=== PATIENT | male | born 1945 | race Caucasian/White ===

== ENCOUNTER 2016-11-18 10:56 | Inpatient (IN) ==
[2016-11-18] MEDS ORDERED: ZOFRAN IV PRN (12:20)
[2016-11-18] MEDS ORDERED: TYLENOL PO PRN (12:20)
[2016-11-18] MEDS ORDERED: NORCO-7.5 PO PRN (12:26)
[2016-11-18] MEDS ORDERED: ANTIVERT PO PRN (12:26)
[2016-11-18 12:43] LABS: MANUAL DIFF NEEDED? NO
[2016-11-18 12:53] LABS: BASO% 0.6 % (0.0-0.8); EOS% 4.4 % (0.0-10.0); HEMATOCRIT 35.4 % (42.0-52.0); IMM GRAN# 0.02 X1000 (0.0-0.04); IMM GRAN% 0.3 % (0.0-0.5); LYMPH# 1.88 X1000 (1.2-3.4); LYMPH% 27.8 % (20.5-51.1); MCH 32.2 PG (27-31); MCHC 33.9 g/dL (33-37); MCV 94.9 FL (81-99); MONO# 0.39 X1000 (0.11-0.59); MONO% 5.8 % (1.7-9.3); MPV 10.1 FL (7.4-10.4); NEUT% 61.1 % (42.2-75.2); PLT 108 X1000 (130-400); RBC 3.73 XMIL (4.7-6.1)
[2016-11-18 13:01] LABS: INR 0.97; PROTIME 10.2 Seconds (9.2-11.7); PTT 26.6 Seconds (22.0-36.0)
[2016-11-18 13:12] LABS: ALBUMIN 3.9 g/dL (3.5-5.0); CALCIUM 8.6 mg/dL (8.8-10.2); POTASSIUM 4.5 mmol/L (3.5-5.1); TOTAL BILIRUBIN 0.49 mg/dL (0.20-1.00); TOTAL PROTEIN 7.6 g/dL (6.3-8.3)
--- NOTE | 2016-11-18 14:11 | Diag Imaging Result Doc PS360 ---
MRI BRAIN W W/O CONTRAST - 11/18/2016 INDICATION: Stroke COMPARISON: 02/19/2014 FINDINGS: There is no area of restricted diffusion. No intracranial mass or hemorrhage. No area of abnormal signal. No abnormal contrast enhancement. Midline structures including optic chiasm and pituitary are normal. IMPRESSION: Negative exam. Electronically signed by Fabian Juares 11/18/2016 2:09 PM
--- NOTE | 2016-11-18 15:04 | HISTORY AND PHYSICAL ---
CHIEF COMPLAINT: Stumbling, headache, weakness of left arm and leg, and confusion. HISTORY OF PRESENT ILLNESS: The patient is a 71-year-old white male followed in my medical practice who is brought in by his daughter to the office. The patient woke up yesterday morning with confusion. Daughter said he was talking out of his head at times. He also noted some numbness and weakness, mild, in his left hand and arm and leg. He had some stumbling with this. He has had some right preauricular headache and swelling there. He had been in for evaluation on 11/15/2016 in the office and I noted that he had a couple blister-like lesions on his right mid pinna area and this was HSV related and started him on Valtrex at that time. I am unclear if he is taking this medication. The patient thought he might have a little swelling in the left pinna area, but I do not see any swelling or redness there. Medications taken down by the nurse as his current medications are 1. Glipizide XL 10 mg p.o. b.i.d. 2. Percocet 7.5 p.o. t.i.d. 3. Phenergan p.r.n. 4. Cipro 500 mg b.i.d. 5. Tylenol p.r.n. 6. Occasional [place]. 7. Antivert 25 mg p.o. t.i.d. p.r.n. dizziness. These are the ones I have down; not confirmed by the nurse, but he is supposed to be on Welchol 3 p.o. b.i.d., Lantus insulin, 68 units subcutaneous q.a.m.. 8. Aspirin 325 mg p.o. daily. 9. Losartan 100 mg p.o. daily. 10. Zoloft 100 mg p.o. daily. 11. Metoprolol 25 mg p.o. b.i.d. 12. Neurontin 300 mg 2 p.o. b.i.d. 13. Flomax 0.4 mg p.o. daily. 14. Proscar 5 mg p.o. daily. 15. Protonix 40 mg p.o. daily. 16. Allopurinol 100 mg p.o. daily. ALLERGIES: NKDA. PAST MEDICAL HISTORY: 1. Migraine headaches. 2. History of diverticulosis. 3. BPH followed by Dr. Farley. 4. Type 2 DM, now insulin requiring. Initially diagnosed 2005. 5. Diabetic neuropathy. 6. Mild chronic renal insufficiency. 7. Hypercholesterolemia. 8. History of kidney stones. PAST SURGICAL HISTORY: 1. Lumbar laminectomy. 2. Hemorrhoidectomy. 3. Laparoscopic cholecystectomy in 06/2009. 4. Right knee arthroscopy in 1990. 5. Left shoulder surgery. 6. Right ureteral stent in 2015. IMMUNIZATIONS: Pneumovax 23 given in 2007, Prevnar 04/15/2015. Last influenza vaccination 04/2016. FAMILY HISTORY: Notable for father with prostate cancer. No hypertension, strokes, MIs, or diabetes in the family. SOCIAL HISTORY: The patient lives in [place]. He is . He has 3 children. 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 Quit smoking in 1980 but has about a 24-[id number]-tpew history of smoking. No alcohol usage. REVIEW OF SYSTEMS: Notables are evaluation per Dr. Sainz in 02/2016 for his heart with nuclear stress testing and negative echo. He sees Dr. Moon for GI care. Last colonoscopy in 03/2014. He see Dr. Qing Mcguire for eye care. OBJECTIVE: Vital signs: Weight 236. Blood pressure 120/60, pulse 80, temperature 96.0 degrees. General: [id number] obesity. Skin: No rashes except there is redness and a couple of scabbed lesions on his right mid pinna area with mild swelling at the area. No significant worsening from evaluation on 11/15. No significant swelling at the left pinna identified. No blister lesions there. HEENT: MARLIN, GANESH. Sclerae: Minimal injection. Mild horizontal nystagmus. TMs clear. OP without redness. Tongue in the midline. Neck: No LA, TMG, JVD, or bruits. CV: RRR without distinct murmur. Lungs: CTA. Abdomen: Protuberant. No mass or organomegaly. Nontender. Genitourinary/Rectal: Deferred. Extremities: No calf tenderness, cords, or edema. Neurologic: Cranial nerves 2-12 are intact without focal deficits. DTRs are equal upper and lower extremities. There is mild stumbling and ataxia noted on exam. I cannot rule out minimal weakness at the left arm compared to the right and, again, he seems to stumble a bit with his left leg. The patient is alert and oriented x4. There may be very minimal confusion but nothing severe. Works or intelligible. He answers questions. ASSESSMENT: 1. Confusion/mental status change. 2. Possible left arm and leg weakness. Rule out cerebrovascular accident. 3. Lesions right pinna. 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 Rule out zoster. Improving slightly with Valtrex treatment or with time. 4. Insulin-dependent diabetes mellitus. 5. Hypercholesterolemia. 6. Chronic renal insufficiency. 7. Diabetic neuropathy. 8. Diverticulosis. 9. History of migraine headaches. 10. Benign prostatic hypertrophy followed by Dr. Farley , urology. 11. History of kidney stones followed by Dr. Farley. 12. Osteoarthritis. PLAN: At this time, we will admit the patient to telemetry bed, monitor neurological checks q. 1 hour. Continue his aspirin and check MRI of brain. We will check carotid Dopplers and echocardiogram. Continue his home medications except for his insulin. For now, we will leave him on a diabetic diet with serial Accu-Cheks and SSI to cover his blood sugars. Continue Valtrex for the lesions right ear area. We will need to rule out herpetic encephalopathy although that is less likely. We will check labs to include CBC, CMP, lipid profile. cc: Jasbir Rosa MD
[2016-11-18 16:13] LABS: UR AMPHETAMINES QUAL NONE DETECTED (NONE DETECT); UR BARBITUATES QUAL NONE DETECTED (NONE DETECT); UR BENZODIAZEPIN QUAL NONE DETECTED (NONE DETECT); UR CANNABINOIDS QUAL NONE DETECTED (NONE DETECT); UR COCAINE QUAL NONE DETECTED (NONE DETECT); UR METHADONE QUAL NONE DETECTED (NONE DETECT); UR OPIATES QUAL NONE DETECTED (NONE DETECT); UR OXYCODONE QUAL NONE DETECTED (NONE DETECT); UR PCP QUAL NONE DETECTED (NONE DETECT)
[2016-11-18] MEDS ORDERED: ASPIRIN EC PO ONE (16:26)
[2016-11-18] MEDS: HUMULIN R SUBQ SCH ×2 (17:51→21:32)
[2016-11-18] MEDS: NS 1,000 ML IV SCH (17:57)
[2016-11-18] MEDS ORDERED: FLOMAX PO SCH (21:00)
[2016-11-18] MEDS: LOPRESSOR PO SCH (21:32)
[2016-11-18] MEDS: VALTREX PO SCH (21:32)
[2016-11-19 05:11] LABS: HEMATOCRIT 33.9 % (42.0-52.0); HEMOGLOBIN 11.4 g/dL (14.0-18.0); MCH 32.5 PG (27-31); MCHC 33.6 g/dL (33-37); MCV 96.6 FL (81-99); MPV 9.7 FL (7.4-10.4); RBC 3.51 XMIL (4.7-6.1)
[2016-11-19] MEDS: HUMULIN R SUBQ SCH ×3 (06:12→16:12)
[2016-11-19] MEDS: NS 1,000 ML IV SCH (06:21)
[2016-11-19] MEDS: VALTREX PO SCH (08:59)
[2016-11-19] MEDS: LOPRESSOR PO SCH (08:59)
[2016-11-19] MEDS ORDERED: ASPIRIN PO SCH ×2 (09:00)
[2016-11-19] MEDS ORDERED: COZAAR PO SCH (09:00)
[2016-11-19] MEDS ORDERED: ZYLOPRIM PO SCH (09:00)
[2016-11-19] MEDS ORDERED: NEURONTIN PO SCH (09:00)
[2016-11-19] MEDS ORDERED: ZOLOFT PO SCH (09:00)
--- NOTE | 2016-11-19 17:49 | ECHO REPORT ---
ORDER DATE: 11/18/2016 ECHOCARDIOGRAM: MEASUREMENTS: Left atrium 4.1, aortic root 3.7. SUMMARY: 1. Fair quality study. 2. Mild aortic valve sclerosis with normal aortic valve opening evident. Peak instantaneous gradient across the aortic valve was less than 10 mmHg. Mild mitral annular calcification is demonstrated. There is also a small focal area chordal calcification just beneath the anterior mitral leaflet tip. Mitral valve opening appears adequate. There is trace mitral regurgitation. Tricuspid valve without structural abnormality while pulmonic valve not well demonstrated. There is mild tricuspid regurgitation. Estimated systolic PA pressure by Doppler is 30-35 mmHg. The aortic root is normal size. 3. Normal left ventricle dimensions suggested on 2-D images. Estimated left ventricular ejection fraction appears to be at least 55%. No regional wall motion abnormalities can be appreciated. Doppler suggests grade 1 left ventricular diastolic dysfunction. Left atrium is mildly enlarged. Right atrium and right ventricle are normal size with normal right ventricular systolic function. 4. No pericardial effusion. 5. Appearance of inferior vena cava suggests normal central venous pressure. CONCLUSIONS: 1. Mild aortic valve sclerosis without stenosis. 2. Mild mitral annular calcification with small focal calcification involving or just beneath mitral leaflet tip with trace mitral regurgitation. 3. Mild tricuspid regurgitation with estimated systolic PA pressure of 30-35 mmHg. 4. Normal left ventricular ejection fraction without wall motion at evident. 5. Grade 1 left ventricular diastolic dysfunction suggested. 6. Mild left atrial enlargement. cc: MD Jasbir Mittal MD
[2016-11-19 19:38] VITALS: BP 162/76
--- NOTE | 2016-11-20 17:06 | DISCHARGE SUMMARY ---
ADMISSION DATE: 11/18/2016 DISCHARGE DATE: 11/19/2016 DISCHARGE DIAGNOSES: 1. Mental status change, brief. Rule out transient ischemic attack, rule out viral syndrome. 2. Possible left arm and leg weakness, brief. Again, rule out transient ischemic attack, rule out related to recent viral syndrome. 3. 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 4. Insulin-dependent diabetes mellitus. 5. Hypercholesterolemia. 6. Chronic renal insufficiency. 7. Diabetic neuropathy. 8. Diverticulosis. 9. History of migraine headaches. 10. Benign prostatic hypertrophy followed by Dr. Farley, Urology. 11. History of kidney stones. 12. Osteoarthritis. 13. Thrombocytopenia, mild, likely possibly related to viral illness. Rule out chronic condition. Will monitor this outpatient. PROCEDURES: 1. MRI of the brain done 11/18/2016 with and without contrast. Negative. 2. Echocardiogram done 11/18/2016 revealed mild aortic valve sclerosis without stenosis, mild mitral annular calcification with small focus of calcification involving her just beneath the mitral leaflet tip with trace mitral regurgitation. Mild tricuspid regurgitation. Normal left ventricular ejection fraction at 55%. No wall motion abnormalities. Grade 1 left ventricular diastolic dysfunction suggested mild left atrial enlargement. 3. Bilateral carotid Doppler studies revealing no significant stenotic areas in the carotids but deep vessels noted. HISTORY OF PRESENT ILLNESS: The patient is a 71-year-old white male followed in my medical practice who came in brought in by his daughter to the office. The patient apparently had awakened on 11/17/2016 in the morning and had some confusion, and his daughter came to visit him and he was somewhat talking out of his head at times. He complained of some numbness and weakness, mild, in his left arm and hand and leg, and he had some possible difficulties with stumbling. He had right preauricular headache and had some swelling there, and had been evaluated in the office on 11/15 and I had noted a couple of blisters on his right pinna area consistent with HSV at that time, and started him on Valtrex outpatient orally for this on 11/15, and he had been taking it. The lesions have dried up and have become less swollen since the treatment started. The patient was evaluated in the office and no significant abnormality was found. On exam he might have had minimal subjective weakness left arm and leg but he was ambulating without difficulty and had no confusion in the office at all. Afebrile throughout the hospitalization and we monitored him neurologically and he had no difficulties, did not seem weak in his arm or leg. The patient underwent some physical therapy and did well in that regard. Testing was done as above and was satisfactory, and labs showed a white count of 6.7, hemoglobin of 12, platelets 108 and 104 respectively. PT was 10.2, INR 0.97, PTT 26.6. CMP showed normal liver function tests. BUN and creatinine were at baseline at 28 and 2.6, potassium 4.5, sodium 133. Urine drug screen negative. The patient was followed during the hospitalization and he has had chronic horizontal nystagmus which has not changed during the evaluation and hospitalization. He does have some diabetic neuropathy and maybe that affects his gait slightly but overall he ambulated well, saw no significant deficits in his arms or legs. He was able to converse and he had no difficulties with thought processes during the hospital stay. It was felt by 11/19 that he could be discharged home. He will resume his home medications and resume the Valtrex at 500 mg p.o. b.i.d. outpatient, and he will follow up in my office in 1 week. At this time I have made the decision to continue the Ecotrin at 325 mg daily, if he has further difficulties may need to add Plavix at 75 mg daily, but at this point, I believe it is best to continue his home medications of aspirin and the like. Other labs that were pertinent show lipid profile with triglycerides 208, total cholesterol 150, LDL 103, HDL 27, VLDL 42. Will not add additional medication for this at this time. Consideration given later if required. cc: Jasbir Rosa MD
--- NOTE | 2016-11-22 15:37 | Carotid Study ---
DATE: 11/18/2016 PROCEDURE: Carotid duplex imaging. REFERRING PHYSICIAN: Dr. Rosa INTERPRETING PHYSICIAN: Dr. Johns TECH: Iam INDICATIONS: Left-sided weakness and stroke. OBSERVED DATA RIGHT LEFT Brachial Blood Pressure Carotid Pulse Bruits: Carotid/Sub DIAGRAM OF ULTRASOUND IMAGING R L RIGHT INT EXT INT EXT LEFT Hebert (cm/s) Hebert (cm/s) Subclavian 73/0 Subclavian 183/0 CCA Proximal 77/10 CCA Proximal 64/2 CCA Distal 68/8 CCA Distal 66/12 Bulb 62/8 Bulb 28/0 ICA Proximal 63/14 ICA Proximal 49/12 ICA Mid 59/15 ICA Mid 60/17 ICA Distal 44/14 ICA Distal 69/21 ECA 62/0 ECA 105/11 Vertebral 49/11 Vertebral 55/13 ICA/CCA Ratio 0.8 ICA/CCA Ratio 1.1 % Stenosis 0 to 39 % Stenosis 0 to 39 FINDINGS: There is mild atherosclerotic disease throughout both carotid systems. There are no ulcerative plaques. There is antegrade vertebral flow bilaterally. PHYSICIAN INTERPRETATION: Unremarkable carotid imaging study with mild plaque disease as described above. cc: MD Jasbir Reddy MD
== END 2016-11-19 20:10 | disposition home or self-care (01) ==
LOC: DIRADM 10:56 → 4N 11:24
PROVIDERS: ADMIT Family Medicine; ATTEND Family Medicine

== ENCOUNTER 2018-06-15 17:38 | Inpatient (IN) ==
[2018-06-15] MEDS ORDERED: ZOFRAN IV ONE (19:20)
[2018-06-15] MEDS ORDERED: SODIUM CHLORIDE 0.9% INJ ONE (19:20)
[2018-06-15] MEDS ORDERED: PROTONIX IV ONE (19:20)
[2018-06-15] MEDS ORDERED: NS 1,000 ML IV ONE ×2 (19:27→22:00)
[2018-06-15 20:00] LABS: BASO# 0.04 X1000 (0.0-0.2); BASO% 0.5 % (0.0-0.8); EOS# 0.16 X1000 (0.0-0.7); EOS% 2.2 % (0.0-10.0); HEMATOCRIT 38.9 % (42.0-52.0); HEMOGLOBIN 13.1 g/dL (14.0-18.0); IMM GRAN# 0.03 X1000 (0.0-0.04); IMM GRAN% 0.4 % (0.0-0.5); LYMPH# 1.75 X1000 (1.2-3.4); MCH 31.6 PG (27-31); MCHC 33.7 g/dL (33-37); MCV 93.7 FL (81-99); MONO# 0.36 X1000 (0.11-0.59); MONO% 4.9 % (1.7-9.3); MPV 10.2 FL (7.4-10.4); NEUT# 4.96 X1000 (1.4-6.5); PLT 143 X1000 (130-400); RBC 4.15 XMIL (4.7-6.1); RDW 13.2 % (11.5-14.5)
--- NOTE | 2018-06-15 20:04 | Diag Imaging Result Doc PS360 ---
EXAM: CT HEAD W/O CONTRAST 06/15/2018 HISTORY: intractable vomiting, headache TECHNIQUE: This exam was performed using automated exposure control, adjustment of mA or kV according to patient size, and/or use of iterative reconstruction technique. COMMENT: There is no evidence of mass effect, bleed, or abnormal extra-axial fluid collection. There are no previous studies available for comparison. There are calcifications in the vertebral and internal carotid arteries bilaterally. The visualized paranasal sinuses are clear. The calvarium is intact. IMPRESSION: No evidence of acute intracranial disease. Electronically signed by Rafael Badillo 06/15/2018 8:01 PM
[2018-06-15 20:08] LABS: INR 0.93; PROTIME 13.2 Seconds (11.0-16.0)
[2018-06-15 20:09] LABS: PTT 28.4 Seconds (22.3-41.8)
[2018-06-15 20:14] LABS: ALB/GLOB RATIO 1.2; ALBUMIN 3.7 g/dL (3.5-5.0); CALCIUM 9.3 mg/dL (8.8-10.2); CREATININE 1.7 mg/dL (0.7-1.2); TOTAL BILIRUBIN 0.9 mg/dL (0.20-1.00); TOTAL PROTEIN 6.7 g/dL (6.3-8.3)
[2018-06-15 20:21] LABS: ALLEN TEST YES; BE -3.1 mmoll (-3.0-3.0); BLOOD TYPE ARTERIAL; HCO3-(ACT) 22.4 mmoll (20.0-26.0); METHB 1.3 % (0.0-1.5); O2(CT) 17.2 mL/dL (15.0-23.0); O2HB 91.8 % (95.0-99.0); PCO2(98.6) 35 mmHg (35-45); PO2(98.6) 60 mmHg (60-100); SAMPLE BLOOD; SAO2 95.4 % (95.0-100.0); THB 13.3 g/dL (11.5-17.4); pH(98.6) 7.39 (7.35-7.45)
[2018-06-15 20:22] LABS: MODALITY ROOM AIR
[2018-06-15 20:35] LABS: URINE SOURCE CLEAN CATCH
[2018-06-15 20:38] LABS: BILIRUBIN URINE NEGATIVE (NEGATIVE); BLOOD URINE SMALL (NEGATIVE); COLOR YELLOW; GLUCOSE URINE 500 mg/dL (NEGATIVE); KETONE URINE 20 mg/dL (NEGATIVE); LEUKOCYTES URINE NEGATIVE (NEGATIVE); NITRITE URINE NEGATIVE (NEGATIVE); PROTEIN URINE 100 mg/dL (NEGATIVE); SP GRAVITY URINE 1.012; TURBIDITY URINE CLEAR (CLEAR); UROBILINOGEN URINE NORMAL (NORMAL)
[2018-06-15 20:39] LABS: UR EPITHELIAL CELLS <10 /HPF (<10); URINE BACTERIA NEGATIVE /HPF; URINE RBC <10 /HPF (<10); URINE WBC <10 /HPF (<10)
--- NOTE | 2018-06-15 21:49 | Diag Imaging Result Doc PS360 ---
EXAM: CT ABD/PELVIS W/IV CONT ONLY 06/15/2018 HISTORY: obstruction TECHNIQUE: This exam was performed using automated exposure control, adjustment of mA or kV according to patient size, and/or use of iterative reconstruction technique. COMMENT: The current examination is compared with 03/15/2016. There is some fibrosis in the lung bases. This was also present at the time the previous study. There is nodularity in the liver and splenomegaly with the spleen measuring over 16 cm in AP dimension. This has not changed significantly. The adrenal glands are not enlarged. The pancreas is stable in appearance. There has been cholecystectomy. The renal pelves are prominent. There is actually less dilatation of the collecting systems and on the previous study. There is no evidence of bowel obstruction. There is no evidence of abdominal aortic aneurysm or significant adenopathy. There is diverticulosis in the descending colon. Pelvis: The appendix is not distended. There is marked diverticulosis in the sigmoid colon. There is gas and stool in the rectum. There is no evidence of free fluid. No masses or significant adenopathy are present. The regional skeleton is stable in appearance. IMPRESSION: Diverticulosis coli. Mild constipation. Cirrhosis and splenomegaly. No evidence of acute disease. Electronically signed by Rafael Badillo 06/15/2018 9:46 PM
[2018-06-15] MEDS ORDERED: REGLAN IV ONE (22:59)
--- NOTE | 2018-06-15 22:59 | PROVIDER DOCUMENTATION ---
This chart was entered by Ting Zuniga Scribe, acting as scribe for Sarah Jewell MD. HPI-Abdominal Pain/GI Problem - General Chief Complaint: Vomiting Stated Complaint: N/V Time Seen by Provider: 06/15/18 19:03 Source: patient Allergies/Adverse Reactions: Patient Allergies Allergy/AdvReac Type Severity Reaction Status Date / Time No Known Allergies Allergy Verified 06/15/18 20:46 Home Medications: Home Medication List Medication Instructions Recorded Confirmed Last Taken Type Aspirin 325 mg PO DAILY 07/06/14 08/16/17 03/15/16 History Gabapentin 600 mg PO DAILY 07/06/14 08/16/17 03/14/16 History Glipizide [Glipizide Xl] 10 mg PO BID 07/06/14 08/16/17 03/15/16 History Losartan Potassium [Cozaar] 100 mg PO DAILY 07/06/14 03/16/16 03/15/16 History Meclizine HCl [Antivert] 25 mg PO TID PRN 07/06/14 03/16/16 Unknown History Metoprolol [Lopressor] 25 mg PO BID 07/06/14 08/16/17 03/15/16 History Sertraline HCl 100 mg PO DAILY 07/06/14 03/16/16 03/15/16 History Tamsulosin [Flomax] 0.4 mg PO QHS #5 capsule 03/13/16 08/16/17 03/14/16 Rx Allopurinol 100 mg PO DAILY #30 tablet 03/16/16 Unknown Rx Hydrocodone/Acetaminophen [[place] 1 each PO Q6H PRN PRN #13 tablet 03/16/16 Unknown Rx 7.5-325 Tablet] Aspirin 325 mg PO DAILY tablet 11/19/16 Unknown Rx Valacyclovir [Valtrex] 500 mg PO BID tablet 11/19/16 08/16/17 Unknown Rx Cephalexin [Keflex] 500 mg PO 4XDAY #28 cap 08/16/17 Unknown Rx Hydrocodone/APAP 5 mg/325 mg 1 ea PO Q6H PRN PRN #15 tab 08/16/17 Unknown Rx [[place]-5] - History of Present Illness-ABD Nature of Presenting Problems: Patient is a 73 year old male that c/o constant vomiting since last night after eating "chicken stew." He additionally c/o headache that has resolved since arrival to the ED. He denies abdominal pain, fever, chills, diarrhea, cp, sob, cough. Abdominal Pain Onset Location: reports: generalized abdomen Pain Radiation: reports: no radiation Quality of Pain: reports: aching Severity in ED: reports: mild Onset/Duration: reports: last night Timing: reports: still present, gone now (headache) Activities at Onset: reports: none Modifying Factors: improves with: nothing Associated Symptoms: denies: chest pain, cough, diarrhea, fever/chills, nausea, shortness of breath, vomiting Similar Symptoms Previously?: No Recently seen or treated by another doctor?: No Review of Systems - Adult - REVIEW OF SYSTEMS - ADULT Constitutional: denies: chills, fever Eyes: denies: discharge, dry eyes Ears, Nose, Mouth & Throat: denies: ear discharge, ear pain Cardiovascular: denies: chest pain, palpitations Respiratory: denies: cough, shortness of breath Gastrointestinal: reports: vomiting. denies: abdominal pain, diarrhea Genitourinary: denies: dysuria, hematuria Musculoskeletal: denies: back pain, muscle aches Neurological: denies: dizziness/vertigo, headache/migraines Past History - Adult - PAST MEDICAL HISTORY-ADULT Review of Records: reports: Old Records Reviewed, Nursing Assessment Review, Medications Reviewed Major Childhood Illnesses: reports: denies history Cardiovascular: reports: HTN Respiratory: reports: denies history Gastrointestinal: reports: denies history Obstetrical/Gynecological: reports: denies history Genitourinary: reports: kidney stones Musculoskeletal: reports: arthritis Neurological: reports: denies history Endocrine/Immune: reports: Diabetes Other Conditions: reports: denies history - PRIOR SURGERIES/PROCEDURES Surgical/Procedure History: reports: cholecystectomy, orthopedic (extremity) - IMMUNIZATION STATUS Childhood Immunizations: See Nurse Assessment Flu Vaccine: See Nurse Assessment - FAMILY HISTORY Family History: reviewed, not pertinent - SOCIAL HISTORY Smoking: non-smoker Alcohol Use Frequency: never Living Situation: family Physical Exam-General - PHYSICAL EXAM-ADULT Initial Vital Signs Reviewed: Yes - CONSTITUTIONAL General Appearance: alert, mild distress, other (vomit bag next to the patient with blood) - EYES Eyes: PERRL/EOMI, pink conjunctivae - NECK Neck: non-tender, supple - RESPIRATORY Respiratory: chest non-tender, lungs clear - CARDIOVASCULAR Cardiovascular: regular rate, rhythm, no murmur - GASTROINTESTINAL (ABDOMEN) Abdominal Exam: non tender, soft - MUSCULOSKELETAL Back Exam: normal inspection, no CVA tenderness, no vertebral tenderness Extremity: normal range of motion, non-tender, normal inspection, no pedal edema - SKIN Integumentary: normal color, warm/dry - NEUROLOGIC Neurologic: grossly normal, no motor/sensory deficits - PSYCHIATRIC Psych/Mental Status: normal mood/affect, normal thought content, normal thought process, oriented x 3 Progress - PLAN OF CARE/RESULTS Progress/Plan/Lab Results: Vital Signs - 8 hr 06/15/18 17:38 06/15/18 17:58 06/15/18 18:04 Pulse Rate 76 75 79 Respiratory Rate 22 27 H 29 H Blood Pressure 179/76 156/76 155/66 O2 Sat by Pulse Oximetry 98 99 99 Orders Category Date Time Status Cardiac Monitoring DIRECTED Care 06/15/18 19:21 Active Finger Stick Blood Sugar (ED) DIRECTED Care 06/15/18 19:21 Active Oxygen Therapy- ED Nursing DIRECTED Care 06/15/18 19:21 Active Saline Loc NOW Care 06/15/18 19:[address] HEAD W/O CONTRAST [CT] Stat Exams 06/15/18 19:22 Ordered ABG [RESP] Routine Lab 06/15/18 19:21 Ordered CBC WITH ELECTRONIC DIFF [HEME] Stat Lab 06/15/18 19:21 Uncollected CK PROFILE [SP CHEM] Stat Lab 06/15/18 19:21 Uncollected COMPREHENSIVE METABOLIC PANEL [CHEM] Stat Lab 06/15/18 19:21 Uncollected LACTATE, PLASMA [CHEM] Stat Lab 06/15/18 19:21 Uncollected OCCULT BLOOD NON-FECES Stat Lab 06/15/18 19:24 Uncollected PROTIME WITH INR [COAG] Stat Lab 06/15/18 19:21 Uncollected PTT [COAG] Stat Lab 06/15/18 19:21 Uncollected TROPONIN T Stat Lab 06/15/18 19:21 Uncollected URINALYSIS [URINALYSIS] Stat Lab 06/15/18 19:21 Uncollected 0.9% Sodium Chloride Inj [Ns] 1,000 ml Med 06/15/18 19:27 Active IV 999 mls/hr Ondansetron [Zofran] Med 06/15/18 19:20 Discontinued 4 mg IV NOW ONE Pantoprazole [Protonix] Med 06/15/18 19:20 Discontinued 40 mg IV NOW ONE Sodium Chloride 0.9% Med 06/15/18 19:20 Discontinued 10 ml INJ NOW ONE EKG [EKG] Stat Ther 06/15/18 19:21 Ordered [facility] [address] , [address], [place] [address] Department of Imaging Patient: AKIN MOELLER ADM Date: 06/15/18 MR#: [id number] : 1945 ADM Status: REG ER Age/Sex: 73/M Room/Bed: Loc: ED Ordering Physician: Sarah Jewell MD Family Physician: Jasbir Rosa MD Reason for Procedure: obstruction ___ Signed EXAM: CT ABD/PELVIS W/IV CONT ONLY 06/15/2018 HISTORY: obstruction TECHNIQUE: This exam was performed using automated exposure control, adjustment of mA or kV according to patient size, and/or use of iterative reconstruction technique. COMMENT: The current examination is compared with 03/15/2016. There is some fibrosis in the lung bases. This was also present at the time the previous study. There is nodularity in the liver and splenomegaly with the spleen measuring over 16 cm in AP dimension. This has not changed significantly. The adrenal glands are not enlarged. The pancreas is stable in appearance. There has been cholecystectomy. The renal pelves are prominent. There is actually less dilatation of the collecting systems and on the previous study. There is no evidence of bowel obstruction. There is no evidence of abdominal aortic aneurysm or significant adenopathy. There is diverticulosis in the descending colon. Pelvis: The appendix is not distended. There is marked diverticulosis in the sigmoid colon. There is gas and stool in the rectum. There is no evidence of free fluid. No masses or significant adenopathy are present. The regional skeleton is stable in appearance. IMPRESSION: Diverticulosis coli. Mild constipation. Cirrhosis and splenomegaly. No evidence of acute disease. Electronically signed by Rafael Badillo 06/15/2018 9:46 PM 06/15/182145 Interpreting Physician: Rafael Badillo MD Dictated Date/Time: 06/15/182138 cc: Sarah Jewell MD; Jasbir Rosa MD Result Diagrams: 06/15/18 18:01 06/15/18 18:01 - EKG 1 Time of EKG reading by physician:: 22:25 EKG Read and Signed by:: Bia Moses EKG Interpretation (*Must complete 3 of following elements*): Normal Rate: 86 Rhythm: Normal sinus rhythm [place]: normal QRS: normal [place] Interval: normal ST Wave: normal - CT/MRI 1 CT Study: Head Impression: Abnormal (COMMENT: There is no evidence of mass effect, bleed, or abnormal extra-axial fluid collection. There are no previous studies available for comparison. There are calcifications in the vertebral and internal carotid arteries bilaterally. The visualized paranasal sinuses are clear. The calvarium is intact. IMPRESSION: No evidence of acute intracranial disease.) 2 CT Study: Abdomen, Pelvis Impression: Abnormal (COMMENT: The current examination is compared with 2015. There is some fibrosis in the lung bases. This was also present at the time the previous study. There is nodularity in the liver and splenomegaly with the spleen measuring over 16 cm in AP dimension. This has not changed significantly. The adrenal glands are not enlarged. The pancreas is stable in appearance. There has been cholecystectomy. The renal pelves are prominent. There is actually less dilatation of the collecting systems and on the previous study. There is no evidence of bowel obstruction. There is no evidence of abdominal aortic aneurysm or significant adenopathy. There is diverticulosis in the descending colon. Pelvis: The appendix is not distended. There is marked diverticulosis in the sigmoid colon. There is gas and stool in the rectum. There is no evidence of free fluid. No masses or significant adenopathy are present. The regional skeleton is stable in appearance.) - CONSULTS/PCP/HOSPITALIST Notification #1 *Consult/PCP/Hospitalist*: Dr. Chew Time Discussed: 23:02 (intractable n/v. weakness) Consult Disposition: Will see in ED Departure - Departure Date of Disposition Decision: 06/15/18 Time of Disposition Decision: 23:02 DIAGNOSIS: Nausea & vomiting Disposition: HOME 01 Certified Medical Emergency: Emergent Condition: Stable Additional Freetext Instructions: ED Follow Up Instructions: You have been treated by a care provider in the Emergency Department. These instructions are being provided to you so you can have an understanding of how to care for yourself upon discharge. Upon discharge from the Emergency Department, you are responsible for making arrangements for follow-up care by a physician of your choice. Take all prescribed medications as directed. Return to the Emergency Department immediately for any new or worsening symptoms. You may call the Physician Referral phone number at [phone] to obtain a list of Physicians who are taking new patients. Referrals and Follow-Ups: Jasbir Rosa MD [Primary Care Provider] - Call for Appoint. 1-2days - Critical Care Note This patient required my direct & personal management of CC.: No Attestation - Physician/ RADHA Attestation Patient care was provided by Advanced Practice Provider:: No The physician spent face to face time with patient:: Yes Advanced Practice Provider documentation review:: Supervising physician onsite and consulted in the evaluation and care of this patient. The physician did have a face to face encounter with the patient. This chart was documented by the indicated scribe, (Ting Zuniga Scribe) and accurately reflects the services I performed and decisions made by me, Sarah Jewell MD, as attested by the provider's signature.
[2018-06-16] MEDS: ZOFRAN IV PRN ×3 (00:45→15:59)
--- NOTE | 2018-06-16 03:22 | HISTORY AND PHYSICAL ---
PRIMARY CARE PHYSICIAN: Dr. Rosa. CHIEF COMPLAINT: Nausea and vomiting x1 day. HISTORY OF PRESENTING ILLNESS: A 73-year-old male with a history of diabetes mellitus type 2, chronic kidney disease, hypertension, and hyperlipidemia who presented to the emergency department with a 1-day history of intractable nausea and vomiting. The patient states that he apparently went to eat out last night at a restaurant, and had some chicken. After that, he started developing nausea and vomiting. The patient was evaluated in the emergency department. He complained of weakness, worsening nausea and vomiting despite antiemetics. Due to his presenting symptoms, it was thought that we will place him for observation for further evaluation and management. At the time of my examination, he denied any headache, fever, chills, chest pain, shortness of breath, hemoptysis, melena, weight changes, and complained of nausea, vomiting, and feeling weak. PAST MEDICAL HISTORY: Includes diabetes mellitus type 2, chronic kidney disease, hypertension and hyperlipidemia. PAST SURGICAL HISTORY: Cholecystectomy, back surgery, right knee surgery, and cataract surgery. ALLERGIES: No known drug allergies. CURRENT MEDICATIONS: As listed in the medication reconciliation sheet. SOCIAL HISTORY: He is a former smoker. No history of alcohol or illicit drug use. FAMILY HISTORY: No history of coronary artery disease. REVIEW OF SYSTEMS: Fourteen point review of systems is as in HPI. Other systems negative. PHYSICAL EXAMINATION: GENERAL: Cooperative, friendly male. He is resting more comfortably now. VITAL SIGNS: Pulse 76, respirations 22, and blood pressure 179/76. HEENT: Atraumatic, normocephalic. Extraocular movements intact. PERRLA. NECK: Supple. CHEST: Clear to auscultation. CARDIOVASCULAR: Regular rate and rhythm. ABDOMEN: Soft. Positive bowel sounds. EXTREMITIES: No edema. NEUROLOGIC: He is awake, alert, and oriented x3. : No bladder distention. SKIN: Warm. LABORATORIES AND STUDIES: WBC 7.2. Hemoglobin 13.1, hematocrit 38.9, and platelets 143,000. Sodium 141, potassium 5, chloride 104, CO2 19, BUN 12, creatinine 1.[address] and pelvis shows mild constipation with no acute disease. ASSESSMENT: A 73-year-old male with a history of diabetes mellitus type 2, chronic kidney disease, hypertension, and hyperlipidemia who presented to the emergency department with a 1-day history of nausea and vomiting after eating dinner last night. Patient was evaluated in the emergency department. Due to his persistent nausea and vomiting despite antiemetics, we will place him for observation for further evaluation and management. 1. Intractable nausea and vomiting. 2. Diabetes mellitus type 2. 3. Chronic kidney disease. 4. Hypertension. PLAN: 1. We will admit patient to medical floor with telemetry. 2. Continue with supportive treatment with IV fluids, and antiemetics as needed. 3. We will put patient on glycemic protocol with sliding scale insulin regimen. 4. Monitor his renal function. 5. Resume his antihypertensive agents and other medications. 6. Place patient on DVT prophylaxis with SCD's. 7. We will continue to follow and reassess. Make further recommendation based on patient's clinical course. cc: Mamadou Chew MD
[2018-06-16] MEDS: NS 1,000 ML IV SCH ×3 (04:30→15:17)
[2018-06-16 07:12] LABS: BASO# 0.02 X1000 (0.0-0.2); BASO% 0.3 % (0.0-0.8); EOS# 0.05 X1000 (0.0-0.7); EOS% 0.7 % (0.0-10.0); HEMATOCRIT 36.7 % (42.0-52.0); HEMOGLOBIN 12.2 g/dL (14.0-18.0); IMM GRAN# 0.02 X1000 (0.0-0.04); IMM GRAN% 0.3 % (0.0-0.5); LYMPH# 1.71 X1000 (1.2-3.4); LYMPH% 22.7 % (20.5-51.1); MCH 31.8 PG (27-31); MCHC 33.2 g/dL (33-37); MCV 95.6 FL (81-99); MONO# 0.39 X1000 (0.11-0.59); MONO% 5.2 % (1.7-9.3); MPV 9.7 FL (7.4-10.4); NEUT# 5.33 X1000 (1.4-6.5); NEUT% 70.8 % (42.2-75.2); PLT 119 X1000 (130-400); RBC 3.84 XMIL (4.7-6.1); WBC 7.52 X1000 (4.8-10.8)
[2018-06-16 07:29] LABS: CREATININE 1.9 mg/dL (0.7-1.2); POTASSIUM 5.2 mmol/L (3.5-5.1)
--- NOTE | 2018-06-16 07:48 | EKG Report ---
Test Performed on : 06/15/2018 10:10:28 PM Test Reason : n/v Blood Pressure : / mmHG Vent. Rate : 086 BPM Atrial Rate : 086 BPM P-R Int : 196 ms QRS Dur : 078 ms QT Int : 378 ms P-R-T Axes : 052 -07 026 degrees QTc Int : 452 ms Normal sinus rhythm. Normal ECG When compared with ECG of 18-JUN-2009 14:00, Questionable change in QRS axis ST no longer elevated in Inferior leads Unconfirmed Result
[2018-06-16] MEDS: HUMULIN R SUBQ SCH ×4 (08:00→22:10)
[2018-06-16] MEDS ORDERED: NS 1,000 ML IV SCH (15:45)
--- NOTE | 2018-06-16 18:33 | PROGRESS NOTE ---
DATE: 06/16/2018 SUBJECTIVE: The patient has been admitted last night. He has had protracted vomiting. Still some ongoing nausea, but improved. He has had no significant abdominal pain, no diarrhea. OBJECTIVE: Vital Signs: Afebrile. Pulse 86. Respirations 20. Blood pressure 157/66. Cardiovascular: RRR, without murmur. Lungs: CTA. Abdomen: Protuberant. Soft. Hypoactive bowel sounds. Minimal tenderness diffusely. No mass or organomegaly. No rebound or guarding. Extremities: No significant edema. Neurologic: Cranial nerves are intact. No focal deficit deficits. LABORATORY STUDIES: White count 7.5, hemoglobin 12.2, down from 13.1, that is with heavy hydration. Platelets 119,000. Platelets yesterday 143. PT 13.9, INR 0.93, PTT 28.4. ABG reviewed from admission: Sodium 140, potassium 5.2, chloride 108, CO2 21, BUN 12, creatinine 1.9, up from 1.7. Blood sugars in the mid 200s. Urinalysis: 500 glucose, 20 ketones. That was on admission. Gastroccult positive. CT head was negative, whereas abdominal CT and pelvic CT revealed diverticulosis, mild constipation, cirrhosis, with splenomegaly. ASSESSMENT: 1. Nausea and vomiting. 2. Mild abdominal pain. 3. Chronic renal insufficiency. 4. Type 2 diabetes mellitus. 5. Hypertension. 6. Osteoarthritis. 7. Hypercholesterolemia. 8. Diverticulosis. 9. Probable cirrhosis of the liver. 10. Constipation. 11. Diabetic neuropathy. PLAN: We will continue IV hydration, antiemetics, and Zofran. We will back off on the hydration slightly. Continue Protonix started IV yesterday. We are going to hold his blood pressure medicines right now, as his blood pressure has been somewhat labile, and had been down to 99/53 earlier this morning. Encouraged him in weight loss and alcohol abstinence. Will follow labs tomorrow morning. cc: Jasbir Rosa MD
[2018-06-16] MEDS: NORCO-5 PO PRN (22:00)
[2018-06-17] MEDS: ZOFRAN IV PRN ×4 (00:04→17:26)
[2018-06-17] MEDS: NORCO-5 PO PRN ×3 (04:48→15:50)
[2018-06-17] MEDS: HUMULIN R SUBQ SCH ×3 (06:58→18:00)
[2018-06-17 07:31] LABS: BASO# 0.02 X1000 (0.0-0.2); BASO% 0.3 % (0.0-0.8); EOS# 0.12 X1000 (0.0-0.7); EOS% 2.1 % (0.0-10.0); HEMATOCRIT 37.8 % (42.0-52.0); HEMOGLOBIN 12.6 g/dL (14.0-18.0); IMM GRAN# 0.03 X1000 (0.0-0.04); IMM GRAN% 0.5 % (0.0-0.5); LYMPH# 1.33 X1000 (1.2-3.4); MCH 32.1 PG (27-31); MCHC 33.3 g/dL (33-37); MCV 96.4 FL (81-99); MONO# 0.31 X1000 (0.11-0.59); MONO% 5.4 % (1.7-9.3); MPV 9.6 FL (7.4-10.4); NEUT# 3.97 X1000 (1.4-6.5); NEUT% 68.7 % (42.2-75.2); PLT 108 X1000 (130-400); RBC 3.92 XMIL (4.7-6.1); RDW 13.3 % (11.5-14.5); WBC 5.78 X1000 (4.8-10.8)
[2018-06-17 07:51] LABS: ALB/GLOB RATIO 1.2; ALBUMIN 3.6 g/dL (3.5-5.0); CALCIUM 8.7 mg/dL (8.8-10.2); CREATININE 1.8 mg/dL (0.7-1.2); POTASSIUM 4.6 mmol/L (3.5-5.1); TOTAL BILIRUBIN 0.88 mg/dL (0.20-1.00); TOTAL PROTEIN 6.5 g/dL (6.3-8.3)
[2018-06-17 08:15] LABS: CK INDEX 1.1 (0.0-2.5); CK-MB 6.08 ng/mL (0.0-5.0)
[2018-06-17] MEDS: NEURONTIN PO SCH (09:29)
[2018-06-17] MEDS ORDERED: SODIUM CHLORIDE 0.9% INJ PRN (11:32)
[2018-06-17] MEDS ORDERED: PHENERGAN IV PRN (11:32)
--- NOTE | 2018-06-17 12:13 | PROGRESS NOTE ---
DATE: 06/17/2018 SUBJECTIVE: Patient is still having a lot of nausea. He does see some improvement with Zofran briefly, but then the symptoms come right back. He has had no vomiting. No significant abdominal pain. Last bowel movement yesterday. Does have a prominent history of motion sickness and vertigo and takes chronic Antivert, but this nausea does not seem to be associated with movement of the head and has no definite precipitating factors. OBJECTIVE: Vital Signs: Afebrile, pulse 84, respirations 20, blood pressure 167/80, O2 saturation 95% room air. Cardiovascular: Regular rate and rhythm. Lungs: Clear. Abdomen: Soft active bowel sounds. Obesity noted. No mass or organomegaly. No rebound or guarding. Extremities: No calf tenderness, cords or edema. Neurologic: Cranial nerves are intact. No focal deficits identified. LABS: White count 5.7, hemoglobin 12.6, which is stable, platelets 108, down from 143 on admission. INR 0.93, PTT 28.4. ABG day before yesterday on room air revealed pH 7.39, pCO2 of 35, pO2 of 60, HCO-3 of 22.4, O2 saturation 95%. Sodium 140, potassium 4.6, chloride 104, CO2 of 24, BUN 12, creatinine 1.8, which is stable and chronic. Blood sugars are in the mid 200s. Calcium 8.7, total bilirubin 0.88, AST 27, ALT 28, alkaline phosphatase 111, total CK is 540. CK index 1.1, CK-MB 6.08, total protein 6.5, albumin 3.6, amylase 28, lipase 19. Patient on admission showed total CK was 157, troponin less than 0.01. ProBNP 217. Another set has been drawn and is currently be out in about 10 minutes by their report. ASSESSMENT: 1. Pronounced nausea with history of severe vomiting earlier. 2. Cirrhosis of the liver with the patient having not been a drinker of alcohol in 40 years. Possible nonalcoholic steatohepatitis (AGOSTO). 3. Morbid obesity. 4. Chronic renal insufficiency followed by Dr. Peralta/Dr. Benítez. 5. Type 2 diabetes mellitus. 6. Hypertension. 7. Osteoarthritis. 8. Hypercholesterolemia. 9. Diverticulosis. 10. Chronic constipation. 11. Diabetic neuropathy. 12. Mildly elevated cardiac enzymes, possibly related to retching. We will monitor this, make sure this is not cardiac in origin. PLAN: At this time, we will add Phenergan and try that in place of the Zofran. Continue IV hydration. We will add double-dose PPI IV. Resume his losartan and metoprolol. We will ask Dr. Kaiser to see the patient. He has had 2 or 3 colonoscopies in the past, but does not recall EGDs in the past. The patient had a prep for colonoscopy within the past year or 2, was unable to complete the test due to sickness associated with the prep. Continue [place], he takes for severe arthritis and back pain. He desires to be n.p.o. right now. He does not want clear liquids. We will await the current troponin and cardiac enzymes that are pending. cc: Jasbir Rosa MD
[2018-06-17 12:20] LABS: CK INDEX 1.3 (0.0-2.5); CK-MB 5.88 ng/mL (0.0-5.0)
[2018-06-17] MEDS: PROTONIX IV SCH (14:16)
[2018-06-17] MEDS: SODIUM CHLORIDE 0.9% INJ SCH (14:16)
--- NOTE | 2018-06-17 15:27 | CONSULTATION ---
DATE OF CONSULTATION: 06/17/2018 REFERRING PHYSICIAN: Jasbir Rosa M.D. INDICATION FOR CONSULTATION: 1. Nausea with vomiting. 2. Abdominal pain. 3. Heme-positive stools. 4. Iron deficiency anemia. HISTORY OF PRESENT ILLNESS: The patient is a 73-year-old, white male, with a history of diabetes 2, chronic kidney disease, hypertension, and hyperlipidemia, who was admitted with intractable nausea with vomiting. He ate a bowl of [place] stew and had a piece of chicken at a local restaurant. By the time he arrived home, he reports severe nausea. Within a couple of hours, he had multiple episodes of nausea with vomiting. The nausea and vomiting has persisted for approximately 48 hours. He states that even today, he is severely nauseated. He has failed to respond to antiemetics and conservative management. We are asked to perform endoscopic evaluation due to the persistent symptoms. PAST MEDICAL HISTORY: 1. Diabetes 2. 2. Chronic kidney disease. 3. Hypertension. 4. Hyperlipidemia. 5. Colon polyps. 6. Unexplained right-sided colitis in 2013. 7. Diverticulosis. 8. Gout. 9. Vertigo. 10. BPH. 11. Herpes simplex. PAST SURGICAL HISTORY: 1. Cholecystectomy. 2. Back surgery. 3. Right knee surgery. 4. Cataract surgery. 5. Colonoscopy. MEDICATION ALLERGIES: None. HOME MEDICATIONS: 1. Allopurinol. 2. Aspirin. 3. Keflex. 4. Gabapentin. 5. Glipizide. 6. [place] 7.5. 7. Humulin 70/30. 8. Cozaar. 9. Antivert. 10. Lopressor. 11. Sertraline. 12. Flomax. 13. Valtrex. SOCIAL HISTORY: Remarkable in the patient is a former smoker. He previously drank alcohol approximately 40 years ago. At that time, he drank 6 to 10 beers on the weekends. He drank heavy for 15 years, but has not consumed any alcohol in 40 years. He denies illicit drug use. FAMILY HISTORY: Negative for coronary artery disease. REVIEW OF SYSTEMS: Remarkable for the information as noted above. PHYSICAL EXAMINATION: General: On exam, he is in no acute distress. Vital Signs: His blood pressure is 167/80, pulse of 84, respiration 20, temperature of 97.9. HEENT: Negative for jaundice. His oropharyngeal mucosal membranes are moist. Pulmonary: Lungs are clear to auscultation with normal respiratory effort. Cardiovascular: Reveals regular rate and rhythm with no gallops or rubs. Abdomen: Soft with mild epigastric tenderness, but no rebound or guarding. Extremities: Bilaterally are negative for cyanosis, clubbing, or edema. OBJECTIVE DATA: Reveals a hemoglobin of 12.6 with hematocrit of 37.8 and a white count of 5.78. He has 108,000 platelets. Sodium is 140, potassium 4.6, chloride 104, CO2 of 24 , BUN 12, creatinine 1.8 with a glucose of 238. Calcium is 8.7, total bilirubin 0.88, AST 27, ALT 28, alkaline phosphatase 111, total protein 6.5 with an albumin 3.6. His CK is 441 with a CK-MB of 5.88 with a troponin less than 0.010, amylase of 28 and a lipase of 19. CT scan of the abdomen and pelvis is remarkable for cirrhosis, splenomegaly, diverticulosis and mild constipation. There was no evidence of acute disease. IMPRESSION: 1. Nausea with vomiting. 2. Cirrhosis of unknown etiology. 3. Abdominal pain. 4. Heme-positive stools. 5. Anemia. RECOMMENDATION: 1. Given that the patient has heme-positive stools, I agree with the Protonix 40 mg IV q.12 hours. 2[address] We will place the patient on the schedule for an EGD on Tuesday to further evaluate the nausea with vomiting. 3. Given that the patient is a diabetic, he should also have a gastric emptying study. Depending on our endoscopic findings, this can be performed as an inpatient or an outpatient. 4. The patient has cirrhosis, but no clear cause given that he reports no alcohol ingestion for over 40 years. Therefore, I recommend a hepatitis profile, OCTAVIANO and repeat labs in the morning to assess his liver function tests as well as a PT/INR. 5. He may benefit from a liver biopsy depending on the results of his serum chemistries. 6. Additional recommendations to follow based on his clinical course. cc: MD Jasbir Franz MD [facility]ALTH SYSTEMJovanny
[2018-06-17] MEDS: LOPRESSOR PO SCH (20:50)
[2018-06-18] MEDS: HUMULIN R SUBQ SCH ×5 (00:14→22:10)
[2018-06-18] MEDS: PROTONIX IV SCH ×3 (00:14→23:47)
[2018-06-18 07:22] LABS: BASO# 0.03 X1000 (0.0-0.2); BASO% 0.4 % (0.0-0.8); EOS# 0.23 X1000 (0.0-0.7); EOS% 3.4 % (0.0-10.0); HEMATOCRIT 40.5 % (42.0-52.0); HEMOGLOBIN 13.5 g/dL (14.0-18.0); IMM GRAN# 0.03 X1000 (0.0-0.04); IMM GRAN% 0.4 % (0.0-0.5); LYMPH# 1.72 X1000 (1.2-3.4); LYMPH% 25.1 % (20.5-51.1); MCH 31.8 PG (27-31); MCHC 33.3 g/dL (33-37); MCV 95.5 FL (81-99); MONO# 0.48 X1000 (0.11-0.59); MPV 9.4 FL (7.4-10.4); NEUT# 4.35 X1000 (1.4-6.5); NEUT% 63.7 % (42.2-75.2); PLT 116 X1000 (130-400); RBC 4.24 XMIL (4.7-6.1); RDW 13.7 % (11.5-14.5); WBC 6.84 X1000 (4.8-10.8)
[2018-06-18 07:37] LABS: INR 0.98; PROTIME 13.8 Seconds (11.0-16.0)
[2018-06-18 07:55] LABS: ALB/GLOB RATIO 1.4; ALBUMIN 3.7 g/dL (3.5-5.0); CALCIUM 8.3 mg/dL (8.8-10.2); CREATININE 2.1 mg/dL (0.7-1.2); TOTAL BILIRUBIN 1.28 mg/dL (0.20-1.00); TOTAL PROTEIN 6.4 g/dL (6.3-8.3)
[2018-06-18 08:14] LABS: C REACTIVE PROT QUANT 1.93 mg/L (0.00-5.00)
[2018-06-18] MEDS: NEURONTIN PO SCH (10:26)
[2018-06-18] MEDS: NORCO-5 PO PRN ×2 (10:27→17:54)
[2018-06-18] MEDS: LOPRESSOR PO SCH ×2 (10:27→20:13)
[2018-06-18] MEDS: COZAAR PO SCH (10:27)
--- NOTE | 2018-06-18 10:28 | PROGRESS NOTE ---
DATE: 06/18/2018 SUBJECTIVE: Mr. Estrada is a 73-year-old white gentleman admitted with intractable nausea and vomiting. The patient claims his nausea is getting some better. He denied any vomiting. Today he was complaining of dull headache. No diplopia or blurred vision. Denied any neck stiffness. No major abdominal pain. No diarrhea, no typical chest pain or palpitation. Admission history, physical and GI consult noted. PAST MEDICAL HISTORY: NIDDM . Chronic kidney disease. Hypertension. Hyperlipidemia. Diverticulosis. Gout. Vertigo. BPH. PAST SURGICAL HISTORY: Patient had cholecystectomy, back surgery, right knee surgery, cataract surgery. OBJECTIVE: Vital signs: Done today, blood pressure 161/75, pulse 70, respirations 16, temperature 97.9 degrees. Skin: No rash or petechiae. HEENT: Head atraumatic, normocephalic. Asher conjunctivae. Anicteric sclerae. Extraocular muscle movement normal. Fundus cannot be penetrated. Good oral hygiene. No tonsillopharyngeal congestion or exudate. Ears and nose benign. Neck: Supple. No JVD, thyromegaly or lymphadenopathy. Chest: Bibasilar crepitation. No rales. CVS: S1 and S2 heard. No gallop or thrill. Abdomen: Soft, globular. Bowel sounds present. Extremities: No cyanosis, clubbing. No acute DVT. HEMATOLOGIST ONCOLOGIST: Alert, awake able to move all 4 limbs. Crepitation both the knee joints. CONSIDERATIONS: Intractable nausea and vomiting. Getting some better. NIDDM. Chronic kidney disease. Hypertension. LAB DATA: Done today, WBC count 6.84, hemoglobin 13.5, hematocrit 40.5, platelet count 116,000. PT/INR 0.98. BUN was 17. Creatinine 2.1. Blood sugar 192. IMAGING: Overall, CT scan of the abdomen and pelvis revealed diverticulosis, mild constipation, cirrhosis and splenomegaly. No evidence of acute disease. PLAN: We will continue current treatment. Retail Product Demo Specialist following patient with us. She is scheduled to have upper GI endoscope tomorrow. Continue the rest of the treatment and close observation. cc: MD Jasbir Mike MD
[2018-06-19] MEDS: HUMULIN R SUBQ SCH ×4 (06:06→20:53)
--- NOTE | 2018-06-19 09:16 | PROGRESS NOTE ---
DATE: 06/19/2018 SUBJECTIVE: Patient without new complaints. Says he feels okay. He is scheduled for EGD later in the morning per Dr. Kaiser. OBJECTIVE: Vital signs: Afebrile. Vital signs stable. Cardiovascular: RRR. Lungs: Clear. Abdomen: Protuberant, soft, nontender, nondistended. Extremities: No calf tenderness, cords or edema. Neurologic: Cranial nerves are intact. He moves all extremities well. No focal deficits identified. LABORATORY DATA: Labs from yesterday show white count 6.8, hemoglobin 13.5, platelets 116,000. INR normal at 0.98. Sodium from yesterday 141, potassium 4.0, chloride 104, CO2 24, BUN 17, creatinine 2.1. Blood sugar high 100s to mid 200s. Calcium 8.3, total bilirubin 1.28, AST 30, ALT 27, alkaline phosphatase 111, C-reactive protein 1.93, total protein 6.4, albumin 3.7. ASSESSMENT: 1. Nausea slightly improved. Vomiting resolved. 2. Cirrhosis of the liver, rule out secondary to nonalcoholic steatohepatitis, rule out other causes such as viral hepatitis. 3. Chronic renal insufficiency followed by Dr. Peralta/Jackelin. 4. Morbid obesity. 5. Type 2 diabetes mellitus. 6. Hypertension. 7. Osteoarthritis. 8. Hypercholesterolemia. 9. Diverticulosis. 10. Chronic constipation. 11. Diabetic neuropathy. PLAN: Patient remains on IV Protonix 40 mg IV q 12 hours. He is back on his antihypertensives and blood pressure is somewhat labile, but tolerable. He is scheduled for EGD later today per Dr. Kaiser. OCTAVIANO, hepatitis profile are still in progress. Await EGD result. cc: Jasbir Rosa MD
[2018-06-19] MEDS: PROTONIX IV SCH ×3 (13:32→23:45)
[2018-06-19] MEDS: SODIUM CHLORIDE 0.9% INJ SCH (13:32)
[2018-06-19] MEDS ORDERED: DIPRIVAN 1% ONE (15:23)
[2018-06-19] MEDS ORDERED: XYLOCAINE-MPF 2% ONE (16:06)
[2018-06-19] MEDS: COZAAR PO SCH (16:33)
[2018-06-19] MEDS: NEURONTIN PO SCH (16:33)
[2018-06-19] MEDS: LOPRESSOR PO SCH ×2 (16:33→20:52)
[2018-06-19] MEDS: CARAFATE PO SCH (20:52)
[2018-06-19] MEDS: AUGMENTIN PO SCH (20:53)
[2018-06-19] MEDS: NORCO-5 PO PRN (20:56)
[2018-06-20] MEDS: CARAFATE PO SCH ×4 (06:44→21:25)
[2018-06-20] MEDS: HUMULIN R SUBQ SCH ×3 (06:45→21:25)
--- NOTE | 2018-06-20 10:39 | Diag Imaging Result Doc PS360 ---
EXAM: GASTRIC EMPTYING INDICATION: nausea with vomiting TECHNIQUE: 552 uCi of technetium 99 sulfur colloid was administered orally with an egg biscuit and images were obtained. COMPARISON: None. FINDINGS: There is normal-appearing activity in the gastric lumen initially. The time to one half emptying was approximately 110 minutes. There was approximately 54% emptying at 120 minutes. IMPRESSION: Somewhat delayed gastric emptying. Electronically signed by Malick Laureano 06/20/2018 10:37 AM
[2018-06-20] MEDS: COZAAR PO SCH ×2 (11:10)
[2018-06-20] MEDS: LOPRESSOR PO SCH ×3 (11:10→21:24)
[2018-06-20] MEDS: AUGMENTIN PO SCH ×3 (11:10→21:24)
[2018-06-20] MEDS: NEURONTIN PO SCH ×2 (11:10→11:11)
[2018-06-20] MEDS: PROTONIX IV SCH ×2 (11:13→22:47)
[2018-06-20] MEDS: SODIUM CHLORIDE 0.9% INJ SCH (11:13)
--- NOTE | 2018-06-20 14:00 | PROGRESS NOTE ---
DATE: 06/20/2018 SUBJECTIVE: Patient is feeling better overall. Nausea has resolved. He has been eating a GI soft diet well this morning in and at lunch as well. He had a small bowel movement this morning. He had EGD yesterday per Dr. Kaiser revealing erosive gastritis and duodenal and gastric ulcer. Gastric emptying study this morning has revealed a slight delay in emptying. OBJECTIVE: Vital Signs: Afebrile. Vital signs stable. Cardiovascular: RRR. Lungs: CTA. Abdomen: Soft. Active bowel sounds. No pinpoint tenderness. Extremities: No calf tenderness, cords or edema. Neurologic: Cranial nerves are intact. No focal deficits. Blood sugars running in the primarily mid 200s to low 300s off his diabetic medications currently. ASSESSMENT: 1. Erosive gastritis/gastric ulcer/duodenal ulcer. 2. Cirrhosis of the liver. 3. CRI followed by Dr. Peralta and Dr. Benítez. 4. Morbid obesity. 5. Type 2 diabetes mellitus. 6. Hypertension. 7. Osteoarthritis. 8. Hypercholesterolemia. 9. Diverticulosis. 10. Chronic constipation. 11. Diabetic neuropathy. PLAN: So far the OCTAVIANO testing is negative and additional studies for the cirrhosis are currently pending. He remains on IV double dose Protonix and is on Carafate per Dr. Kaiser. I am going to leave him on IV Protonix another day or 2 and then discharge him home if he does well. We will place him back on his Glucotrol XL and his Zoloft. Continue SSI. Also reintroduce his Flomax. Continue serial Accu-Cheks. We will ambulate the patient. cc: Jasbir Rosa MD
[2018-06-20] MEDS ORDERED: FLOMAX PO SCH (21:00)
[2018-06-20] MEDS: NORCO-5 PO PRN (21:24)
[2018-06-20] MEDS: GLUCOTROL XL PO SCH (21:24)
[2018-06-21] MEDS: HUMULIN R SUBQ SCH ×3 (06:05→18:06)
[2018-06-21] MEDS: NORCO-5 PO PRN (08:55)
[2018-06-21] MEDS: NEURONTIN PO SCH (08:56)
[2018-06-21] MEDS: GLUCOTROL XL PO SCH (08:56)
[2018-06-21] MEDS: AUGMENTIN PO SCH (08:56)
[2018-06-21] MEDS: COZAAR PO SCH (08:56)
[2018-06-21] MEDS: LOPRESSOR PO SCH (08:56)
[2018-06-21] MEDS: CARAFATE PO SCH ×3 (08:56→18:04)
[2018-06-21] MEDS ORDERED: ZOLOFT PO SCH (09:00)
[2018-06-21] MEDS: PROTONIX IV SCH (11:17)
[2018-06-21 15:07] VITALS: BP 139/68
--- NOTE | 2018-06-22 06:56 | PROGRESS NOTE ---
DATE: 06/21/2018 SUBJECTIVE: Patient without any nausea or vomiting. No abdominal pain. He is doing better on his regimen of Protonix and Carafate per Dr. Kaiser. He does have some mild diabetic gastroparesis, and we counseled him in regard to small meals more frequently and eating a low-fat component to that to try to curb symptoms of this gastroparesis. We also will talk to him about limiting his narcotic usage that he uses for his back as that might further exacerbate those symptoms. OBJECTIVE: Vital signs: Afebrile. Vital signs stable. CV: RRR. Lungs: Clear. Abdomen: Active bowel sounds. Nontender, protuberant. Extremities: No edema. Neuro: Nonfocal. Blood sugars in the mid 200s primarily off of his home insulin dosage due to testing. ASSESSMENT: 1. Diabetic gastroparesis, mild. 2. Erosive gastritis/gastric ulcer/duodenal ulcer. 3. Cirrhosis of the liver with negative OCTAVIANO screening. 4. Chronic renal insufficiency followed by Dr. Peralta and Dr. Benítez. 5. Morbid obesity. 6. Type 2 diabetes mellitus. 7. Hypertension. 8. Osteoarthritis. 9. Hypercholesterolemia. 10. Diverticulosis. 11. Chronic constipation. 12. Diabetic neuropathy. PLAN: We will discharge the patient home on double dose Protonix, Carafate, diabetic gastroparesis diet measures. He will follow up in my office in 1 to 2 weeks. Resume his home insulin and Glucotrol XL, and all his home medications except he will try to avoid narcotic usage as much as possible, as this might exacerbate his gastroparesis situation. cc: Jasbir Rosa MD
--- NOTE | 2018-06-22 09:52 | OPERATIVE NOTE ---
PROCEDURE DATE: 06/19/2018 REFERRING PHYSICIAN: Jasbir Rosa M.D. INDICATIONS FOR PROCEDURE: 1. Nausea with vomiting. 2. Abdominal pain. 3. Iron deficiency anemia. 4. Heme-positive stools. 5. Unexplained cirrhosis. PROCEDURE PERFORMED: Esophagogastroduodenoscopy with biopsy. CONSENT: Informed consent was obtained from the patient prior to the procedure. The risks, benefits, and alternatives were discussed. MEDICATION: The patient received monitored anesthesia care. PERFORMING PHYSICIAN: Marlen Kaiser M.D. ASSISTANTS: 1. ST. Larry 2. Shelly Green RN. 3. Foster Sánchez CRNA. 4. Sanya Minor M.D. (anesthesia). COMPLICATIONS: There were no complications. ESTIMATED BLOOD LOSS: Less than 1 mL. SPECIMEN REMOVED: 1. Duodenal biopsy. 2. Gastric biopsy. FINDINGS: After sedation was achieved, the upper endoscope was inserted to the third portion of the duodenum. The hypopharynx appeared normal. The tubular esophagus appeared normal, but was coated with thick yellow-green nasopharyngeal secretions. After evacuating the esophagus, the tubular esophagus appeared endoscopically normal. There were no esophageal varices appreciated. In the distal esophagus, the GE junction appeared normal at 40 cm. In the gastric lumen, the fundus and body were filled with copious amounts of bilious secretions suggestive of gastroparesis. Post evacuation, there was evidence of acute gastritis. In the antrum, there was an antral ulcer that was 6 to 8 mm in size, and it was serpiginous with a superficial whitish base. There was no active bleeding or stigmata of bleeding noted. In the fundus on retroflexed view, there was gastritis, but it was otherwise normal. The pylorus appeared endoscopically normal. In the duodenal bulb, there was severe duodenitis with deep erosions. The acute duodenitis was present in the 1st and 2nd portions of the duodenum. There was less duodenitis in the third portion. The fourth portion of the duodenum and the C-loop appeared endoscopically normal. Upon withdrawal of the scope, there was a superficial whitish based ulcer noted in the duodenal bulb that was not seen on scope insertion. After biopsies were taken from both the duodenal and gastric mucosa, the lumen was decompressed, and the scope was removed without incident. IMPRESSION: 1. Copious nasopharyngeal secretions suggestive of acute sinusitis. 2. Normal appearing tubular esophagus with no evidence of varices. 3. Retained gastric secretions consistent with gastroparesis. 4. Acute erosive gastritis. 5. Antral ulcer. 6. Duodenitis. 7. Duodenal bulb ulcer. RECOMMENDATION: 1. Await biopsy results. 2. Begin Protonix 40 mg IV every 12 hours. 3. Continue Carafate 1 gram p.o. 4 times a day for 12 weeks and then stop. 4. Monitor serial hemoglobin and hematocrit and transfuse as needed. 5. We will schedule an inpatient gastric emptying study to assess for gastroparesis. 6. We will have the patient schedule an outpatient liver biopsy in July 2018. 7. We will begin Augmentin for presumed sinusitis. 8. We will have the patient return to the clinic for interval reassessment in July 2018. cc: MD Jasbir Franz MD MTDD
== END 2018-06-21 19:47 | disposition home or self-care (01) | DRG 74 ==
LOC: SUPCPDRO → EDIPHOLD 17:38 → ED 17:38 → SUATTDRO 06-16 03:36 → 3N 06-16 09:40
PROVIDERS: ADMIT Family Medicine; ATTEND Family Medicine
CPT/HCPCS: 70450; 74177; 78264; 80048; 80053; 81001; 82150; 82271; 82550; 82553; 82805; 82948; 83516; 83690; 83880; 84484; 85025; 85610; 85730; 86038; 86039; 86140; 86255; 88305; 88312; 93005; 96361; 96374; 96375; 96376; 99285; A9270; A9541; C9113; J2405; J2550; J2765; J7030; Q9967; S0164; XXXXX